=== PATIENT | male | born 2005 | race Two or more races ===

== ENCOUNTER 2024-03-23 05:45 | Emergency (ER) | payer SELFPAY ==
[~2024-03-23] VITALS: Ht 170.2 cm; Wt 72.7 kg
[2024-03-23 07:17] VITALS: BP 115/73; PULSE 86; RESP 18; TEMP 97.8; O2SAT 98
[2024-03-23] MEDS ORDERED: CEPH250C PO (07:42)
[2024-03-23] MEDS ORDERED: IBUP-1455 PO (07:42)
== END 2024-03-23 07:42 | disposition home or self-care (01) ==
LOC: ER 05:45
DX: S01.111A Laceration without foreign body of right eyelid and periocular area, initial encounter (principal); X58.XXXA Exposure to other specified factors, initial encounter; Y93.89 Activity, other specified; Y92.89 Other specified places as the place of occurrence of the external cause; Y99.8 Other external cause status
CPT/HCPCS: 12011